=== PATIENT | female | born 1970 | race Caucasian/White ===

== ENCOUNTER 2018-09-18 14:40 | Inpatient (IN) | payer MEDICAID ==
[~2018-09-18] VITALS: Ht 162.6 cm; Wt 85.7 kg
[2018-09-18] MEDS ORDERED: SODIUM CHLORIDE 0.9% 1,000 ML IV ONE ×2 (14:45→19:45)
[2018-09-18 15:33] LABS: ANION GAP 8 mmol/L (8-16); CALCIUM, TOTAL 8.6 mg/dL (8.8-10.5); CARBON DIOXIDE 29 mmol/L (22-29); CHLORIDE 104 mmol/L (98-107); CREATININE 1.21 mg/dL (0.60-1.30); GLOMERULAR FILTR. RATE CALC 48 mL/min (>60); GLUCOSE,RANDOM 133 mg/dL (70-110); POTASSIUM 3.6 mmol/L (3.5-5.1); SODIUM SERUM 141 mmol/L (136-145); UREA NITROGEN, BLOOD 2 mg/dL (7-18)
[2018-09-18 15:38] LABS: ALANINE AMINOTRANSFERASE 32 U/L (12-78); ALBUMIN 2.9 g/dL (3.4-5.0); ALKALINE PHOSPHATASE 89 U/L (46-116); ASPARTATE AMINOTRANSFERASE 34 U/L (15-37); BILIRUBIN,TOTAL 0.2 mg/dL (0.1-1.0); TOTAL PROTEIN, SERUM 7.4 g/dL (6.4-8.2)
[2018-09-18 15:46] LABS: SALICYLATE < 2.8 mg/dL (2.8-20.0)
[2018-09-18 15:51] LABS: BASOPHILS % (AUTO) 0.5 % (0.0-2.0); EOSINOPHILS % (AUTO) 0.6 % (1.0-6.0); HEMATOCRIT 38.4 % (36-46); HEMOGLOBIN 12.7 g/dL (12.0-16.0); LYMPHOCYTES % (AUTO) 24.8 % (22.0-44.0); MEAN CORPUSCULAR HEMOGLOBIN 28.6 pg (26.0-34.0); MEAN CORPUSCULAR VOLUME 87 fL (80-100); MONOCYTES # (AUTO) 0.7 K/uL (0.1-1.0); MONOCYTES % (AUTO) 9.1 % (2.0-9.0); NEUTROPHILS # (AUTO) 5.1 K/uL (1.8-7.7); PLATELET COUNT (AUTO) 425 K/uL (150-450); RED BLOOD CELL COUNT(AUTO) 4.42 MIL/uL (4.00-5.20); RED CELL DISTRIBUTION WIDTH 15.1 % (11.5-14.5)
[2018-09-18 15:57] LABS: ACETAMINOPHEN < 2 mcg/mL (10-30)
[2018-09-18] MEDS ORDERED: MAGNESIUM SULFATE 2 GM, MVI, ADULT NO.1 WITH VIT K 10 ML, THIAMINE HCL 100 MG, FOLIC AC... IV ONE ×5 (16:30)
[2018-09-18 16:40] LABS: OSMOLALITY 332 mOS/kg (270-310)
[2018-09-18 16:49] LABS: AMPHET/METH SCREEN,URINE NEGATIVE (NEGATIVE); BARBITURATE SCREEN, URINE NEGATIVE (NEGATIVE); BENZODIAZEPINES SCREEN,URINE NEGATIVE (NEGATIVE); CANNABINOID SCREEN,URINE NEGATIVE (NEGATIVE); COCAINE SCREEN,URINE NEGATIVE (NEGATIVE); METHADONE SCREEN, URINE NEGATIVE (NEGATIVE); OPIATE SCREEN,URINE NEGATIVE (NEGATIVE)
[2018-09-18 16:50] LABS: PHENCYCLIDINE SCREEN,URINE NEGATIVE (NEGATIVE)
[2018-09-19] MEDS: HALOPERIDOL 5 MG TABLET PO PRN ×3 (00:28→17:34)
[2018-09-19] MEDS: LORazepam 2 MG TABLET PO PRN ×3 (00:28→17:35)
[2018-09-19] MEDS: ZOLPIDEM TARTRATE 10 MG TABLET PO PRN ×2 (01:09→21:56)
[2018-09-19 02:23] VITALS: BP 121/76
[2018-09-19] MEDS ORDERED: PETROLATUM,WHITE 71 GM JELLY TP PRN (07:30)
[2018-09-19] MEDS ORDERED: CloNIDine HCL 0.1 MG TABLET PO PRN (07:30)
[2018-09-19] MEDS ORDERED: IBUPROFEN 400 MG TABLET PO PRN (07:30)
[2018-09-19] MEDS ORDERED: LOPERAMIDE HCL 2 MG CAPSULE PO PRN (07:30)
[2018-09-19] MEDS ORDERED: MAG HYDROX/AL HYDROX/SIMETH ES 30 ML SUSPENSION UDCUP PO PRN (07:30)
[2018-09-19] MEDS ORDERED: ACETAMINOPHEN 325 MG TABLET PO PRN (07:30)
[2018-09-19] MEDS ORDERED: ALBUTEROL SULFATE HFA 90 MCG/PUFF 8 GM INHALER IH PRN (07:30)
[2018-09-19] MEDS ORDERED: MAGNESIUM HYDROXIDE SUSPENSION 30 ML UDCUP PO PRN (07:30)
[2018-09-19] MEDS ORDERED: ONDANSETRON HCL 4 MG TABLET PO PRN (07:30)
[2018-09-19] MEDS ORDERED: DOCUSATE SODIUM 100 MG CAPSULE PO PRN (07:30)
[2018-09-19 08:42] LABS: HEMOGLOBIN A1C 5.7 % (4.5-6.2)
[2018-09-19 09:01] LABS: CHOL/HDL RATIO 5.1 (3.9-5.7); FREE T4 (FREE THYROXINE) 0.95 ng/dL (0.76-1.46); THYROID STIMULATING HORMONE 1.56 uIU/mL (0.36-3.74)
[2018-09-19] MEDS: NICOTINE 14 MG/24 HOUR PATCH TD PRN (09:14)
[2018-09-19] MEDS: QUEtiapine FUMARATE 25 MG TABLET PO SCH (10:08)
[2018-09-19 10:15] LABS: APPEARANCE,URINE CLEAR (CLEAR); BILIRUBIN,URINE NEGATIVE (NEGATIVE); GLUCOSE, URINE (UA) NEGATIVE (NEGATIVE); KETONES,URINE NEGATIVE (NEGATIVE); LEUKOCYTE ESTERASE ,URINE NEGATIVE (NEGATIVE); NITRATE,URINE NEGATIVE (NEGATIVE); OCCULT BLOOD,URINE NEGATIVE (NEGATIVE); PROTEIN,URINE NEGATIVE (NEGATIVE); UROBILINOGEN,URINE 0.2 mg/dL (<=1.0)
[2018-09-19 10:20] LABS: AMPHET/METH SCREEN,URINE NEGATIVE (NEGATIVE); BARBITURATE SCREEN, URINE NEGATIVE (NEGATIVE); BENZODIAZEPINES SCREEN,URINE NEGATIVE (NEGATIVE); CANNABINOID SCREEN,URINE NEGATIVE (NEGATIVE); COCAINE SCREEN,URINE NEGATIVE (NEGATIVE); METHADONE SCREEN, URINE NEGATIVE (NEGATIVE); OPIATE SCREEN,URINE NEGATIVE (NEGATIVE); PHENCYCLIDINE SCREEN,URINE NEGATIVE (NEGATIVE)
[2018-09-19 16:08] VITALS: BP 104/58
[2018-09-19] MEDS: QUEtiapine FUMARATE 100 MG TABLET PO SCH (21:56)
[2018-09-20 06:03] VITALS: BP 112/69
[2018-09-20] MEDS: LORazepam 2 MG TABLET PO PRN ×3 (07:43→20:34)
[2018-09-20] MEDS: QUEtiapine FUMARATE 25 MG TABLET PO SCH (07:43)
[2018-09-20] MEDS: HALOPERIDOL 5 MG TABLET PO PRN ×2 (07:43→16:04)
[2018-09-20] MEDS: NICOTINE 14 MG/24 HOUR PATCH TD PRN (07:44)
[2018-09-20 07:50] LABS: BASOPHILS % (AUTO) 0.6 % (0.0-2.0); EOSINOPHILS % (AUTO) 1.6 % (1.0-6.0); HEMATOCRIT 35.7 % (36-46); HEMOGLOBIN 11.8 g/dL (12.0-16.0); LYMPHOCYTES # (AUTO) 1.7 K/uL (1.0-4.8); MEAN CORPUSCULAR HEMOGLOBIN 28.8 pg (26.0-34.0); MEAN CORPUSCULAR HGB CONC 33.1 G/dL (31.0-37.0); MEAN CORPUSCULAR VOLUME 87 fL (80-100); MONOCYTES # (AUTO) 0.4 K/uL (0.1-1.0); MONOCYTES % (AUTO) 7.3 % (2.0-9.0); NEUTROPHILS # (AUTO) 3.6 K/uL (1.8-7.7); NEUTROPHILS % (AUTO) 61.5 % (40.0-70.0); PLATELET COUNT (AUTO) 418 K/uL (150-450); RED BLOOD CELL COUNT(AUTO) 4.11 MIL/uL (4.00-5.20); RED CELL DISTRIBUTION WIDTH 14.8 % (11.5-14.5)
[2018-09-20 07:58] LABS: HEMOGLOBIN A1C 5.7 % (4.5-6.2)
[2018-09-20 08:01] VITALS: BP 108/60
[2018-09-20 08:12] LABS: ALBUMIN 2.9 g/dL (3.4-5.0); BILIRUBIN,TOTAL 0.2 mg/dL (0.1-1.0); CALCIUM, TOTAL 8.7 mg/dL (8.8-10.5); CHOL/HDL RATIO 4.4 (3.9-5.7); CREATININE 1.22 mg/dL (0.60-1.30); POTASSIUM 4.7 mmol/L (3.5-5.1); THYROID STIMULATING HORMONE 1.99 uIU/mL (0.36-3.74); TOTAL PROTEIN, SERUM 7.3 g/dL (6.4-8.2)
[2018-09-20 17:00] VITALS: BP 127/65
[2018-09-20] MEDS: ZOLPIDEM TARTRATE 10 MG TABLET PO PRN (20:34)
[2018-09-20] MEDS: QUEtiapine FUMARATE 100 MG TABLET PO SCH (20:35)
[2018-09-21 08:21] VITALS: BP 114/71
[2018-09-21] MEDS: QUEtiapine FUMARATE 25 MG TABLET PO SCH (08:59)
[2018-09-21] MEDS: LORazepam 2 MG TABLET PO PRN ×2 (08:59→17:26)
[2018-09-21] MEDS: HALOPERIDOL 5 MG TABLET PO PRN ×2 (08:59→15:56)
[2018-09-21] MEDS: NICOTINE 14 MG/24 HOUR PATCH TD PRN (09:00)
[2018-09-21] MEDS: FLUoxetine HCL 20 MG CAPSULE PO SCH (12:37)
[2018-09-21] MEDS: GuaiFENesin/D-METHORPHAN [SUGAR-FREE] 200-20MG/10 ML SYRUP UDCUP PO PRN (15:55)
[2018-09-21 17:18] VITALS: BP 115/73
[2018-09-21] MEDS ORDERED: BENZOCAINE/MENTHOL LOZENGE PO PRN (19:30)
[2018-09-21] MEDS: QUEtiapine FUMARATE 200 MG TABLET PO SCH (20:31)
[2018-09-21] MEDS: ZOLPIDEM TARTRATE 10 MG TABLET PO PRN (20:32)
[2018-09-22] MEDS: HALOPERIDOL 5 MG TABLET PO PRN ×4 (05:01→20:10)
[2018-09-22] MEDS: LORazepam 2 MG TABLET PO PRN ×4 (05:01→20:10)
[2018-09-22 05:20] VITALS: BP 121/70
[2018-09-22 08:15] VITALS: BP 108/73
[2018-09-22] MEDS: QUEtiapine FUMARATE 25 MG TABLET PO SCH (09:11)
[2018-09-22] MEDS: NICOTINE 14 MG/24 HOUR PATCH TD PRN (09:11)
[2018-09-22] MEDS: FLUoxetine HCL 20 MG CAPSULE PO SCH (09:11)
[2018-09-22] MEDS: GuaiFENesin/D-METHORPHAN [SUGAR-FREE] 200-20MG/10 ML SYRUP UDCUP PO PRN ×2 (09:17→20:09)
[2018-09-22 17:14] VITALS: BP 106/66
[2018-09-22] MEDS: QUEtiapine FUMARATE 200 MG TABLET PO SCH (20:10)
[2018-09-23] MEDS: LORazepam 2 MG TABLET PO PRN ×3 (05:40→18:05)
[2018-09-23 08:00] VITALS: BP 122/79
[2018-09-23] MEDS: FLUoxetine HCL 20 MG CAPSULE PO SCH (09:33)
[2018-09-23] MEDS: QUEtiapine FUMARATE 25 MG TABLET PO SCH (09:33)
[2018-09-23] MEDS: GuaiFENesin/D-METHORPHAN [SUGAR-FREE] 200-20MG/10 ML SYRUP UDCUP PO PRN ×2 (09:34→18:06)
[2018-09-23] MEDS: NICOTINE 14 MG/24 HOUR PATCH TD PRN (09:36)
[2018-09-23 20:05] VITALS: BP 110/72
[2018-09-23] MEDS: QUEtiapine FUMARATE 200 MG TABLET PO SCH (20:13)
[2018-09-23] MEDS: ZOLPIDEM TARTRATE 10 MG TABLET PO PRN (20:13)
[2018-09-24] MEDS: LORazepam 2 MG TABLET PO PRN (03:27)
[2018-09-24] MEDS: ZOLPIDEM TARTRATE 10 MG TABLET PO PRN (03:27)
[2018-09-24 04:11] VITALS: BP 119/79
[2018-09-24] MEDS: FLUoxetine HCL 20 MG CAPSULE PO SCH (08:02)
[2018-09-24] MEDS: QUEtiapine FUMARATE 25 MG TABLET PO SCH (08:02)
[2018-09-24] MEDS ORDERED: QUET25TA PO (08:26)
[2018-09-24] MEDS ORDERED: FLUO-191 PO (08:26)
[2018-09-24] MEDS ORDERED: QUET200T PO (08:27)
[2018-09-24 10:47] VITALS: BP 122/81
== END 2018-09-24 12:07 | disposition home or self-care (01) | DRG 750 ==
LOC: EMS 14:43 → 3EI 21:05
DX: F25.1 Schizoaffective disorder, depressive type (principal); Z78.1 Physical restraint status; R45.851 Suicidal ideations; E78.5 Hyperlipidemia, unspecified; F41.9 Anxiety disorder, unspecified; D64.9 Anemia, unspecified; F10.10 Alcohol abuse, uncomplicated; Y90.9 Presence of alcohol in blood, level not specified; T51.92XD Toxic effect of unspecified alcohol, intentional self-harm, subsequent encounter; R45.87 Impulsiveness; M79.7 Fibromyalgia; Z79.899 Other long term (current) drug therapy; Z23 Encounter for immunization; Z91.5 Personal history of self-harm; Y92.89 Other specified places as the place of occurrence of the external cause
CPT/HCPCS: 80307; 83036; 83930; 84439; 84443; 90686; 93005; 96365; G0480; G0481; J3411; J3475; J3490; J7030; Q0162

== ENCOUNTER 2018-09-25 04:24 | Emergency (ER) | payer MEDICAID ==
[~2018-09-25] VITALS: Ht 162.6 cm; Wt 84.5 kg
[~2018-09-25 04:24] MED LIST: FLUO-191 PO; QUET200T PO; QUET25TA PO
[2018-09-25 06:04] LABS: BASOPHILS % (AUTO) 0.4 % (0.0-2.0); EOSINOPHILS % (AUTO) 0.2 % (1.0-6.0); HEMATOCRIT 35.6 % (36-46); HEMOGLOBIN 11.9 g/dL (12.0-16.0); LYMPHOCYTES # (AUTO) 1.6 K/uL (1.0-4.8); LYMPHOCYTES % (AUTO) 20.1 % (22.0-44.0); MEAN CORPUSCULAR HEMOGLOBIN 28.6 pg (26.0-34.0); MEAN CORPUSCULAR HGB CONC 33.3 G/dL (31.0-37.0); MEAN CORPUSCULAR VOLUME 86 fL (80-100); MONOCYTES # (AUTO) 0.8 K/uL (0.1-1.0); MONOCYTES % (AUTO) 9.8 % (2.0-9.0); NEUTROPHILS # (AUTO) 5.6 K/uL (1.8-7.7); NEUTROPHILS % (AUTO) 69.5 % (40.0-70.0); PLATELET COUNT (AUTO) 483 K/uL (150-450); RED BLOOD CELL COUNT(AUTO) 4.14 MIL/uL (4.00-5.20); RED CELL DISTRIBUTION WIDTH 14.8 % (11.5-14.5)
[2018-09-25 06:12] LABS: ANION GAP 10 mmol/L (8-16); CALCIUM, TOTAL 9.3 mg/dL (8.8-10.5); CARBON DIOXIDE 28 mmol/L (22-29); CHLORIDE 102 mmol/L (98-107); CREATININE 0.74 mg/dL (0.60-1.30); GLOMERULAR FILTR. RATE CALC > 60 mL/min (>60); GLUCOSE,RANDOM 119 mg/dL (70-110); POTASSIUM 4.9 mmol/L (3.5-5.1); SODIUM SERUM 140 mmol/L (136-145); UREA NITROGEN, BLOOD 8 mg/dL (7-18)
[2018-09-25 06:19] LABS: ALANINE AMINOTRANSFERASE 31 U/L (12-78); ALBUMIN 3.4 g/dL (3.4-5.0); ALKALINE PHOSPHATASE 95 U/L (46-116); ASPARTATE AMINOTRANSFERASE 31 U/L (15-37); BILIRUBIN,TOTAL 0.3 mg/dL (0.1-1.0); TOTAL PROTEIN, SERUM 7.8 g/dL (6.4-8.2)
[2018-09-25 06:30] VITALS: BP 120/66
[2018-09-25 06:39] LABS: HCG,QUANTITATIVE 2 mIU/mL (0-6)
[2018-09-25] MEDS ORDERED: DiphenhydrAMINE HCL 25 MG CAPSULE PO ONE (06:45)
[2018-09-25] MEDS ORDERED: LORazepam 1 MG TABLET PO ONE (06:45)
[2018-09-25] MEDS ORDERED: HALOPERIDOL 5 MG TABLET PO ONE (06:45)
[2018-09-25] MEDS ORDERED: ONDANSETRON HCL 4 MG TABLET PO ONE (07:15)
[2018-09-25 07:17] LABS: AMPHET/METH SCREEN,URINE NEGATIVE (NEGATIVE); BARBITURATE SCREEN, URINE NEGATIVE (NEGATIVE); BENZODIAZEPINES SCREEN,URINE NEGATIVE (NEGATIVE); CANNABINOID SCREEN,URINE NEGATIVE (NEGATIVE); COCAINE SCREEN,URINE NEGATIVE (NEGATIVE); METHADONE SCREEN, URINE NEGATIVE (NEGATIVE); OPIATE SCREEN,URINE NEGATIVE (NEGATIVE)
[2018-09-25 07:18] LABS: PHENCYCLIDINE SCREEN,URINE NEGATIVE (NEGATIVE)
[2018-09-25 07:20] LABS: APPEARANCE,URINE CLEAR (CLEAR); BILIRUBIN,URINE NEGATIVE (NEGATIVE); GLUCOSE, URINE (UA) NEGATIVE (NEGATIVE); KETONES,URINE NEGATIVE (NEGATIVE); LEUKOCYTE ESTERASE ,URINE NEGATIVE (NEGATIVE); NITRATE,URINE NEGATIVE (NEGATIVE); OCCULT BLOOD,URINE NEGATIVE (NEGATIVE); PH,URINE 6.5 (5.0-8.0); PROTEIN,URINE NEGATIVE (NEGATIVE); UROBILINOGEN,URINE 0.2 mg/dL (<=1.0)
== END 2018-09-25 08:20 | disposition home or self-care (01) ==
LOC: EMS 04:26
DX: F25.9 Schizoaffective disorder, unspecified (principal); F17.200 Nicotine dependence, unspecified, uncomplicated
CPT/HCPCS: 36415; 80053; 80307; 81003; 84702; 85025; 99284; G0480; Q0162

== ENCOUNTER 2018-09-29 12:07 | Emergency (ER) | payer MEDICAID ==
[~2018-09-29] VITALS: Ht 162.6 cm; Wt 84.5 kg
[2018-09-29] MEDS ORDERED: KETOROLAC TROMETHAMINE 60 MG/2 ML VIAL IM ONE (15:00)
[2018-09-29 16:52] VITALS: BP 130/88
[2018-10-01] MEDS ORDERED: FLUO-191 PO (09:06)
[2018-10-01] MEDS ORDERED: QUET200T29 PO (09:06)
[2018-10-01] MEDS ORDERED: QUET25TA34 PO (09:06)
[2018-10-04] MEDS ORDERED: LEVO50TA11 PO (09:18)
[2018-10-04] MEDS ORDERED: OMEG-12 PO (09:19)
[2018-10-04] MEDS ORDERED: DIVA-76 PO (09:25)
== END 2018-09-29 16:55 | disposition home or self-care (01) ==
LOC: EMS 12:08
DX: S80.02XA Contusion of left knee, initial encounter (principal); F25.9 Schizoaffective disorder, unspecified; F17.210 Nicotine dependence, cigarettes, uncomplicated; W01.0XXA Fall on same level from slipping, tripping and stumbling without subsequent striking against object, initial encounter; Y93.89 Activity, other specified; Y92.89 Other specified places as the place of occurrence of the external cause; Y99.8 Other external cause status
CPT/HCPCS: 73562; 96372; 99283; 99406; J1885; 29530

== ENCOUNTER 2019-04-28 14:47 | Inpatient (IN) | payer MEDICAID ==
[~2019-04-28] VITALS: Ht 162.6 cm; Wt 90.7 kg
[~2019-04-28 14:47] MED LIST changes: +BACL10TA PO; +DIVA-76 PO; +LEVO50TA11 PO; +NAPR-1025 PO; +OMEG-12 PO; -QUET200T PO; +QUET200T29 PO; -QUET25TA PO; +QUET25TA34 PO
[2019-04-28] MEDS ORDERED: DiphenhydrAMINE HCL 25 MG CAPSULE PO ONE (15:45)
[2019-04-28] MEDS ORDERED: HALOPERIDOL 5 MG TABLET PO ONE (15:45)
[2019-04-28] MEDS ORDERED: LORazepam 2 MG TABLET PO ONE (15:45)
[2019-04-29] MEDS: ZOLPIDEM TARTRATE 10 MG TABLET PO PRN (01:20)
[2019-04-29 01:38] VITALS: BP 120/81
[2019-04-29 07:54] LABS: HEMOGLOBIN A1C 5.9 % (4.5-6.2)
[2019-04-29 08:06] LABS: BASOPHILS % (AUTO) 0.5 % (0.0-2.0); HEMATOCRIT 32.9 % (36-46); HEMOGLOBIN 10.4 g/dL (12.0-16.0); LYMPHOCYTES # (AUTO) 1.9 K/uL (1.0-4.8); LYMPHOCYTES % (AUTO) 32.6 % (22.0-44.0); MEAN CORPUSCULAR HEMOGLOBIN 25.2 pg (26.0-34.0); MEAN CORPUSCULAR HGB CONC 31.6 G/dL (31.0-37.0); MEAN CORPUSCULAR VOLUME 80 fL (80-100); MONOCYTES # (AUTO) 0.6 K/uL (0.1-1.0); NEUTROPHILS # (AUTO) 3.2 K/uL (1.8-7.7); NEUTROPHILS % (AUTO) 54.9 % (40.0-70.0); PLATELET COUNT (AUTO) 301 K/uL (150-450); RED BLOOD CELL COUNT(AUTO) 4.12 MIL/uL (4.00-5.20); RED CELL DISTRIBUTION WIDTH 15.9 % (11.5-14.5)
[2019-04-29 08:07] LABS: ALANINE AMINOTRANSFERASE 41 U/L (12-78); ALBUMIN 3.1 g/dL (3.4-5.0); ALKALINE PHOSPHATASE 103 U/L (46-116); ANION GAP 8 mmol/L (8-16); ASPARTATE AMINOTRANSFERASE 48 U/L (15-37); BILIRUBIN,TOTAL 0.3 mg/dL (0.1-1.0); CALCIUM, TOTAL 9.5 mg/dL (8.8-10.5); CARBON DIOXIDE 29 mmol/L (22-29); CHLORIDE 106 mmol/L (98-107); CHOL/HDL RATIO 3.7 (3.9-5.7); CHOLESTEROL 156 mg/dL (131-200); CREATININE 0.69 mg/dL (0.60-1.30); FREE T4 (FREE THYROXINE) 0.88 ng/dL (0.76-1.46); GLOMERULAR FILTR. RATE CALC > 60 mL/min (>60); GLUCOSE,RANDOM 83 mg/dL (70-110); HDL CHOLESTEROL 42 mg/dL (40-60); LDL CHOL (CALC.) 95 mg/dL (0-130); SODIUM SERUM 143 mmol/L (136-145); THYROID STIMULATING HORMONE 4.31 uIU/mL (0.36-3.74); TRIGLYCERIDES 94 mg/dL (15-150); UREA NITROGEN, BLOOD 18 mg/dL (7-18)
[2019-04-29 08:31] VITALS: BP 139/85
[2019-04-29] MEDS: LORazepam 2 MG TABLET PO PRN ×2 (09:27→17:34)
[2019-04-29 16:47] VITALS: BP 116/71
[2019-04-29] MEDS: QUEtiapine FUMARATE 200 MG TABLET PO SCH (20:50)
[2019-04-29] MEDS: DIVALPROEX SODIUM 500 MG DR TABLET PO SCH (20:50)
[2019-04-30 00:23] VITALS: BP 101/49
[2019-04-30] MEDS: LEVOTHYROXINE SODIUM 50 MCG TABLET PO SCH (07:11)
[2019-04-30] MEDS: FLUoxetine HCL 20 MG CAPSULE PO SCH (08:39)
[2019-04-30] MEDS: GABAPENTIN 300 MG CAPSULE PO SCH ×2 (08:40→16:29)
[2019-04-30] MEDS: DIVALPROEX SODIUM 500 MG DR TABLET PO SCH ×2 (08:40→20:32)
[2019-04-30 09:01] VITALS: BP 110/55
[2019-04-30] MEDS: LORazepam 2 MG TABLET PO PRN (10:35)
[2019-04-30 16:24] VITALS: BP 131/76
[2019-04-30] MEDS ORDERED: ONDANSETRON HCL 4 MG TABLET PO PRN (18:15)
[2019-04-30] MEDS: QUEtiapine FUMARATE 200 MG TABLET PO SCH (20:32)
[2019-05-01 05:24] VITALS: BP 102/63
[2019-05-01] MEDS: LEVOTHYROXINE SODIUM 50 MCG TABLET PO SCH (06:01)
[2019-05-01 08:19] VITALS: BP 108/63
[2019-05-01] MEDS: DIVALPROEX SODIUM 500 MG DR TABLET PO SCH ×2 (08:23→20:41)
[2019-05-01] MEDS: MULTIVITAMINS WITH IRON TABLET PO SCH (08:23)
[2019-05-01] MEDS: FLUoxetine HCL 20 MG CAPSULE PO SCH (08:23)
[2019-05-01] MEDS: GABAPENTIN 300 MG CAPSULE PO SCH ×2 (08:23→17:15)
[2019-05-01] MEDS: LORazepam 2 MG TABLET PO PRN (13:37)
[2019-05-01 16:34] VITALS: BP 106/74
[2019-05-01] MEDS: QUEtiapine FUMARATE 200 MG TABLET PO SCH (20:41)
[2019-05-02 00:30] VITALS: BP 106/65
[2019-05-02] MEDS: LEVOTHYROXINE SODIUM 50 MCG TABLET PO SCH (06:57)
[2019-05-02 08:24] VITALS: BP 110/60
[2019-05-02] MEDS: MULTIVITAMINS WITH IRON TABLET PO SCH (09:11)
[2019-05-02] MEDS: DIVALPROEX SODIUM 500 MG DR TABLET PO SCH ×2 (09:12→20:42)
[2019-05-02] MEDS: GABAPENTIN 300 MG CAPSULE PO SCH ×2 (09:12→16:41)
[2019-05-02] MEDS: FLUoxetine HCL 20 MG CAPSULE PO SCH (09:12)
[2019-05-02] MEDS: LORazepam 2 MG TABLET PO PRN (10:55)
[2019-05-02 16:21] VITALS: BP 114/78
[2019-05-02] MEDS: QUEtiapine FUMARATE 200 MG TABLET PO SCH (20:42)
[2019-05-03 00:20] VITALS: BP 109/72
[2019-05-03] MEDS: ZOLPIDEM TARTRATE 10 MG TABLET PO PRN (03:24)
[2019-05-03] MEDS: HALOPERIDOL 5 MG TABLET PO PRN (03:57)
[2019-05-03] MEDS: LEVOTHYROXINE SODIUM 50 MCG TABLET PO SCH (06:34)
[2019-05-03 08:50] VITALS: BP 139/85
[2019-05-03] MEDS: DIVALPROEX SODIUM 500 MG DR TABLET PO SCH ×2 (08:52→20:13)
[2019-05-03] MEDS: GABAPENTIN 300 MG CAPSULE PO SCH ×2 (08:52→16:08)
[2019-05-03] MEDS: MULTIVITAMINS WITH IRON TABLET PO SCH (08:52)
[2019-05-03] MEDS: FLUoxetine HCL 20 MG CAPSULE PO SCH (08:52)
[2019-05-03] MEDS: LORazepam 2 MG TABLET PO PRN (16:08)
[2019-05-03 16:24] VITALS: BP 118/72
[2019-05-03] MEDS: QUEtiapine FUMARATE 200 MG TABLET PO SCH (20:13)
[2019-05-04 06:24] VITALS: BP 105/68
[2019-05-04] MEDS: LEVOTHYROXINE SODIUM 50 MCG TABLET PO SCH (06:45)
[2019-05-04 08:31] VITALS: BP 104/60
[2019-05-04] MEDS: FLUoxetine HCL 20 MG CAPSULE PO SCH (08:42)
[2019-05-04] MEDS: MULTIVITAMINS WITH IRON TABLET PO SCH (08:42)
[2019-05-04] MEDS: GABAPENTIN 300 MG CAPSULE PO SCH ×2 (08:42→16:19)
[2019-05-04] MEDS: DIVALPROEX SODIUM 500 MG DR TABLET PO SCH ×2 (08:42→20:43)
[2019-05-04] MEDS: LORazepam 2 MG TABLET PO PRN (11:05)
[2019-05-04] MEDS: HALOPERIDOL 5 MG TABLET PO PRN (14:56)
[2019-05-04 16:25] VITALS: BP 114/76
[2019-05-04] MEDS: QUEtiapine FUMARATE 200 MG TABLET PO SCH (20:43)
[2019-05-05 05:38] VITALS: BP 130/69
[2019-05-05] MEDS: LEVOTHYROXINE SODIUM 50 MCG TABLET PO SCH (06:00)
[2019-05-05 08:13] VITALS: BP 133/66
[2019-05-05] MEDS: FLUoxetine HCL 20 MG CAPSULE PO SCH (08:20)
[2019-05-05] MEDS: MULTIVITAMINS WITH IRON TABLET PO SCH (08:20)
[2019-05-05] MEDS: DIVALPROEX SODIUM 500 MG DR TABLET PO SCH ×2 (08:20→20:15)
[2019-05-05] MEDS: GABAPENTIN 300 MG CAPSULE PO SCH ×2 (08:20→16:25)
[2019-05-05] MEDS: HALOPERIDOL 5 MG TABLET PO PRN ×2 (13:07→19:42)
[2019-05-05] MEDS: LORazepam 2 MG TABLET PO PRN ×2 (13:07→19:42)
[2019-05-05 16:28] VITALS: BP 138/63
[2019-05-05] MEDS: QUEtiapine FUMARATE 200 MG TABLET PO SCH (20:15)
[2019-05-06] MEDS: LEVOTHYROXINE SODIUM 50 MCG TABLET PO SCH (06:02)
[2019-05-06 06:27] VITALS: BP 132/64
[2019-05-06] MEDS: MULTIVITAMINS WITH IRON TABLET PO SCH (08:08)
[2019-05-06] MEDS: GABAPENTIN 300 MG CAPSULE PO SCH ×2 (08:08→16:43)
[2019-05-06] MEDS: DIVALPROEX SODIUM 500 MG DR TABLET PO SCH ×2 (08:08→20:35)
[2019-05-06] MEDS: FLUoxetine HCL 20 MG CAPSULE PO SCH (08:08)
[2019-05-06 08:13] VITALS: BP 128/65
[2019-05-06] MEDS: HALOPERIDOL 5 MG TABLET PO PRN ×2 (09:27→16:43)
[2019-05-06] MEDS: LORazepam 2 MG TABLET PO PRN ×2 (09:27→16:43)
[2019-05-06 16:11] VITALS: BP 111/66
[2019-05-06] MEDS: QUEtiapine FUMARATE 200 MG TABLET PO SCH (20:34)
[2019-05-07] MEDS: LEVOTHYROXINE SODIUM 50 MCG TABLET PO SCH (06:14)
[2019-05-07] MEDS: GABAPENTIN 300 MG CAPSULE PO SCH (08:21)
[2019-05-07] MEDS: FLUoxetine HCL 20 MG CAPSULE PO SCH (08:21)
[2019-05-07] MEDS: DIVALPROEX SODIUM 500 MG DR TABLET PO SCH (08:21)
[2019-05-07] MEDS: MULTIVITAMINS WITH IRON TABLET PO SCH (08:21)
[2019-05-07 08:23] VITALS: BP 103/64
[2019-05-07] MEDS: LORazepam 2 MG TABLET PO PRN (09:46)
[2019-05-07] MEDS: HALOPERIDOL 5 MG TABLET PO PRN (09:46)
[2019-05-07] MEDS ORDERED: DIVA-78 PO (12:39)
[2019-05-07] MEDS ORDERED: GABA-531 PO (12:39)
[2019-05-07] MEDS ORDERED: FLUO-191 PO (12:39)
[2019-05-07] MEDS ORDERED: QUET200T PO (12:39)
== END 2019-05-07 13:20 | disposition home or self-care (01) | DRG 750 ==
LOC: EMS 14:47 → B2S 22:30
PROVIDERS: ADMIT Psychiatry & Neurology Psychiatry; ATTEND Psychiatry & Neurology Psychiatry
DX: F25.1 Schizoaffective disorder, depressive type (principal); R45.851 Suicidal ideations; E03.9 Hypothyroidism, unspecified; F15.90 Other stimulant use, unspecified, uncomplicated; Z90.710 Acquired absence of both cervix and uterus
CPT/HCPCS: 83036; 84439; 84443

== ENCOUNTER 2019-05-13 16:29 | Inpatient (IN) | payer MEDICAID ==
[~2019-05-13] VITALS: Ht 165.1 cm; Wt 89.8 kg
[~2019-05-13 16:29] MED LIST changes: -BACL10TA PO; -DIVA-76 PO; +DIVA-78 PO; +GABA-531 PO; -NAPR-1025 PO; -OMEG-12 PO; +QUET200T PO; -QUET200T29 PO; -QUET25TA34 PO
[2019-05-13] MEDS ORDERED: LORazepam 1 MG TABLET PO ONE (19:00)
[2019-05-13] MEDS ORDERED: ONDANSETRON HCL 4 MG TABLET PO ONE (19:15)
[2019-05-13 19:28] LABS: AMPHET/METH SCREEN,URINE POSITIVE (NEGATIVE); BARBITURATE SCREEN, URINE NEGATIVE (NEGATIVE); BENZODIAZEPINES SCREEN,URINE NEGATIVE (NEGATIVE); CANNABINOID SCREEN,URINE NEGATIVE (NEGATIVE); COCAINE SCREEN,URINE NEGATIVE (NEGATIVE); METHADONE SCREEN, URINE NEGATIVE (NEGATIVE); OPIATE SCREEN,URINE POSITIVE (NEGATIVE)
[2019-05-13 19:29] LABS: PHENCYCLIDINE SCREEN,URINE NEGATIVE (NEGATIVE)
[2019-05-13] MEDS ORDERED: HALOPERIDOL 5 MG TABLET PO ONE (19:30)
[2019-05-13] MEDS ORDERED: DiphenhydrAMINE HCL 25 MG CAPSULE PO ONE (19:30)
[2019-05-13 19:33] LABS: BASOPHILS % (AUTO) 0.3 % (0.0-2.0); EOSINOPHILS % (AUTO) 0.5 % (1.0-6.0); HEMATOCRIT 36.7 % (36-46); HEMOGLOBIN 11.3 g/dL (12.0-16.0); LYMPHOCYTES # (AUTO) 1.9 K/uL (1.0-4.8); LYMPHOCYTES % (AUTO) 25.1 % (22.0-44.0); MEAN CORPUSCULAR HEMOGLOBIN 24.4 pg (26.0-34.0); MEAN CORPUSCULAR HGB CONC 30.9 G/dL (31.0-37.0); MEAN CORPUSCULAR VOLUME 79 fL (80-100); MONOCYTES # (AUTO) 0.9 K/uL (0.1-1.0); MONOCYTES % (AUTO) 11.7 % (2.0-9.0); NEUTROPHILS # (AUTO) 4.6 K/uL (1.8-7.7); NEUTROPHILS % (AUTO) 62.4 % (40.0-70.0); PLATELET COUNT (AUTO) 376 K/uL (150-450); RED BLOOD CELL COUNT(AUTO) 4.64 MIL/uL (4.00-5.20); RED CELL DISTRIBUTION WIDTH 16.5 % (11.5-14.5)
[2019-05-13 19:44] LABS: ANION GAP 7 mmol/L (8-16); CALCIUM, TOTAL 9.3 mg/dL (8.8-10.5); CARBON DIOXIDE 30 mmol/L (22-29); CHLORIDE 103 mmol/L (98-107); CREATININE 0.84 mg/dL (0.60-1.30); GLOMERULAR FILTR. RATE CALC > 60 mL/min (>60); GLUCOSE,RANDOM 110 mg/dL (70-110); POTASSIUM 4.2 mmol/L (3.5-5.1); SODIUM SERUM 140 mmol/L (136-145); UREA NITROGEN, BLOOD 7 mg/dL (7-18)
[2019-05-13 19:49] LABS: ALANINE AMINOTRANSFERASE 75 U/L (12-78); ALBUMIN 3.8 g/dL (3.4-5.0); ALKALINE PHOSPHATASE 161 U/L (46-116); ASPARTATE AMINOTRANSFERASE 83 U/L (15-37); BILIRUBIN,TOTAL 0.3 mg/dL (0.1-1.0); TOTAL PROTEIN, SERUM 7.9 g/dL (6.4-8.2)
[2019-05-13 19:50] LABS: ACETAMINOPHEN < 2 mcg/mL (10-30)
[2019-05-13 19:55] LABS: SALICYLATE 2.9 mg/dL (2.8-20.0)
[2019-05-14 00:41] VITALS: BP 118/78
[2019-05-14] MEDS: ZOLPIDEM TARTRATE 10 MG TABLET PO PRN (00:48)
[2019-05-14] MEDS: LORazepam 2 MG TABLET PO PRN ×2 (00:48→11:36)
[2019-05-14] MEDS: GABAPENTIN 300 MG CAPSULE PO SCH ×2 (07:54→16:03)
[2019-05-14] MEDS: LEVOTHYROXINE SODIUM 50 MCG TABLET PO SCH (07:54)
[2019-05-14 11:37] VITALS: BP 114/84
[2019-05-14 16:13] VITALS: BP 116/63
[2019-05-14] MEDS: DIVALPROEX SODIUM 500 MG DR TABLET PO SCH (21:21)
[2019-05-14] MEDS: QUEtiapine FUMARATE 200 MG TABLET PO SCH (21:21)
[2019-05-15] MEDS: LEVOTHYROXINE SODIUM 50 MCG TABLET PO SCH (05:51)
[2019-05-15 06:28] VITALS: BP 114/70
[2019-05-15] MEDS: DIVALPROEX SODIUM 500 MG DR TABLET PO SCH ×2 (08:13→20:12)
[2019-05-15] MEDS: GABAPENTIN 300 MG CAPSULE PO SCH ×2 (08:13→16:02)
[2019-05-15] MEDS: FLUoxetine HCL 20 MG CAPSULE PO SCH (08:13)
[2019-05-15 08:24] VITALS: BP 109/63
[2019-05-15 09:18] LABS: CHOL/HDL RATIO 4.2 (3.9-5.7); FREE T4 (FREE THYROXINE) 0.88 ng/dL (0.76-1.46); THYROID STIMULATING HORMONE 0.96 uIU/mL (0.36-3.74)
[2019-05-15] MEDS: LORazepam 2 MG TABLET PO PRN (09:21)
[2019-05-15] MEDS: HALOPERIDOL 5 MG TABLET PO PRN (13:47)
[2019-05-15 16:08] VITALS: BP 112/68
[2019-05-15] MEDS: QUEtiapine FUMARATE 200 MG TABLET PO SCH (20:12)
[2019-05-16] MEDS: LEVOTHYROXINE SODIUM 50 MCG TABLET PO SCH (05:50)
[2019-05-16 06:15] VITALS: BP 113/69
[2019-05-16 08:06] VITALS: BP 115/69
[2019-05-16] MEDS: DIVALPROEX SODIUM 500 MG DR TABLET PO SCH ×2 (08:09→20:16)
[2019-05-16] MEDS: GABAPENTIN 300 MG CAPSULE PO SCH ×2 (08:09→16:01)
[2019-05-16] MEDS: LORazepam 2 MG TABLET PO PRN ×2 (08:10→15:41)
[2019-05-16] MEDS: FLUoxetine HCL 20 MG CAPSULE PO SCH (08:10)
[2019-05-16] MEDS: HALOPERIDOL 5 MG TABLET PO PRN (15:53)
[2019-05-16 16:00] VITALS: BP 127/89
[2019-05-16] MEDS: QUEtiapine FUMARATE 200 MG TABLET PO SCH (20:16)
[2019-05-16] MEDS: ZOLPIDEM TARTRATE 10 MG TABLET PO PRN (20:19)
[2019-05-16] MEDS: NICOTINE 21 MG/24 HOUR PATCH TD PRN (20:20)
[2019-05-17 06:41] VITALS: BP 132/73
[2019-05-17] MEDS: LEVOTHYROXINE SODIUM 50 MCG TABLET PO SCH (06:47)
[2019-05-17] MEDS: LORazepam 2 MG TABLET PO PRN ×3 (07:22→17:25)
[2019-05-17] MEDS: GABAPENTIN 300 MG CAPSULE PO SCH ×2 (08:04→16:59)
[2019-05-17] MEDS: FLUoxetine HCL 20 MG CAPSULE PO SCH (08:04)
[2019-05-17] MEDS: DIVALPROEX SODIUM 500 MG DR TABLET PO SCH ×2 (08:04→20:03)
[2019-05-17 08:09] VITALS: BP 106/68
[2019-05-17] MEDS: HALOPERIDOL 5 MG TABLET PO PRN ×2 (09:25→17:25)
[2019-05-17 16:27] VITALS: BP 124/70
[2019-05-17] MEDS: QUEtiapine FUMARATE 200 MG TABLET PO SCH (20:03)
[2019-05-18 00:35] VITALS: BP 99/71
[2019-05-18] MEDS: LEVOTHYROXINE SODIUM 50 MCG TABLET PO SCH (06:44)
[2019-05-18] MEDS: GABAPENTIN 300 MG CAPSULE PO SCH ×2 (07:51→16:23)
[2019-05-18] MEDS: FLUoxetine HCL 20 MG CAPSULE PO SCH (07:51)
[2019-05-18] MEDS: DIVALPROEX SODIUM 500 MG DR TABLET PO SCH ×2 (07:51→20:10)
[2019-05-18 08:01] VITALS: BP 102/64
[2019-05-18] MEDS: LORazepam 2 MG TABLET PO PRN ×2 (12:15→18:05)
[2019-05-18 16:09] VITALS: BP_SYST 102; BP_SYST 108; BP_DIAS 64; BP_DIAS 66
[2019-05-18] MEDS: HALOPERIDOL 5 MG TABLET PO PRN (16:23)
[2019-05-18] MEDS: QUEtiapine FUMARATE 200 MG TABLET PO SCH (20:10)
[2019-05-19 06:13] VITALS: BP 112/72
[2019-05-19] MEDS: LEVOTHYROXINE SODIUM 50 MCG TABLET PO SCH (06:50)
[2019-05-19] MEDS: GABAPENTIN 300 MG CAPSULE PO SCH ×2 (08:09→16:44)
[2019-05-19] MEDS: DIVALPROEX SODIUM 500 MG DR TABLET PO SCH ×2 (08:09→20:23)
[2019-05-19] MEDS: FLUoxetine HCL 20 MG CAPSULE PO SCH (08:12)
[2019-05-19 08:24] VITALS: BP 107/65
[2019-05-19] MEDS: LORazepam 2 MG TABLET PO PRN ×2 (12:57→19:14)
[2019-05-19] MEDS: HALOPERIDOL 5 MG TABLET PO PRN (12:57)
[2019-05-19 16:12] VITALS: BP 117/68
[2019-05-19] MEDS: QUEtiapine FUMARATE 200 MG TABLET PO SCH (20:23)
[2019-05-20 02:21] VITALS: BP 110/65
[2019-05-20] MEDS: LEVOTHYROXINE SODIUM 50 MCG TABLET PO SCH (06:47)
[2019-05-20 08:11] VITALS: BP 100/62
[2019-05-20] MEDS: DIVALPROEX SODIUM 500 MG DR TABLET PO SCH ×2 (08:17→20:05)
[2019-05-20] MEDS: FLUoxetine HCL 20 MG CAPSULE PO SCH (08:17)
[2019-05-20] MEDS: GABAPENTIN 300 MG CAPSULE PO SCH ×2 (08:17→16:08)
[2019-05-20] MEDS: HALOPERIDOL 5 MG TABLET PO PRN ×2 (08:49→17:37)
[2019-05-20] MEDS: LORazepam 2 MG TABLET PO PRN ×2 (08:49→17:37)
[2019-05-20 16:07] VITALS: BP 104/78
[2019-05-20 17:37] VITALS: BP 124/70
[2019-05-20] MEDS: NICOTINE 21 MG/24 HOUR PATCH TD PRN (17:38)
[2019-05-20] MEDS: QUEtiapine FUMARATE 200 MG TABLET PO SCH (20:05)
[2019-05-21 00:30] VITALS: BP 110/76
[2019-05-21] MEDS: LEVOTHYROXINE SODIUM 50 MCG TABLET PO SCH (05:27)
[2019-05-21 08:13] VITALS: BP 109/62
[2019-05-21] MEDS: GABAPENTIN 300 MG CAPSULE PO SCH ×2 (08:53→16:09)
[2019-05-21] MEDS: DIVALPROEX SODIUM 500 MG DR TABLET PO SCH ×2 (08:53→20:02)
[2019-05-21] MEDS: HALOPERIDOL 5 MG TABLET PO PRN ×2 (08:53→13:10)
[2019-05-21] MEDS: FLUoxetine HCL 20 MG CAPSULE PO SCH (08:53)
[2019-05-21] MEDS: LORazepam 2 MG TABLET PO PRN ×3 (08:53→18:48)
[2019-05-21 16:11] VITALS: BP 102/64
[2019-05-21] MEDS: QUEtiapine FUMARATE 200 MG TABLET PO SCH (20:02)
[2019-05-22 00:42] VITALS: BP 96/64
[2019-05-22] MEDS ORDERED: LEVO50TA11 PO (03:24)
[2019-05-22] MEDS ORDERED: GABA300C PO (03:27)
[2019-05-22] MEDS: LEVOTHYROXINE SODIUM 50 MCG TABLET PO SCH (06:08)
== END 2019-05-22 07:37 | disposition home or self-care (01) | DRG 750 ==
LOC: EDSTATUS 16:29 → EMS 18:02 → B2S 21:25
PROVIDERS: ADMIT Psychiatry & Neurology Psychiatry; ATTEND Psychiatry & Neurology Psychiatry
DX: F25.9 Schizoaffective disorder, unspecified (principal); R45.851 Suicidal ideations; E03.9 Hypothyroidism, unspecified; E78.00 Pure hypercholesterolemia, unspecified; Z90.710 Acquired absence of both cervix and uterus; F32.9 Major depressive disorder, single episode, unspecified; T50.902A Poisoning by unspecified drugs, medicaments and biological substances, intentional self-harm, initial encounter; Y92.89 Other specified places as the place of occurrence of the external cause; D64.9 Anemia, unspecified
CPT/HCPCS: 84439; 84443; 87081; G0480; G0481; Q0162

== ENCOUNTER 2020-12-16 13:32 | Inpatient (IN) | payer MEDICAID ==
[~2020-12-16] VITALS: Ht 162.6 cm; Wt 85.7 kg
[~2020-12-16 13:32] MED LIST changes: +DIVA-112 PO; -DIVA-78 PO; +GABA-1181 PO; -GABA-531 PO
[2020-12-16 16:00] LABS: COVID AG,FIA SOURCE NASOPHARYNGEAL
[2020-12-16] MEDS ORDERED: INFLUENZA VIRUS VACCINE QVS 2020-21 (6MO+)/PF 60 MCG/0.5 ML SYRINGE IM ONE (17:00)
[2020-12-16 17:41] VITALS: BP 128/71
[2020-12-16] MEDS: HALOPERIDOL 5 MG TABLET PO PRN (18:17)
[2020-12-16] MEDS: LORazepam 2 MG TABLET PO PRN (18:17)
[2020-12-16] MEDS ORDERED: BACITRACIN 28 GM OINTMENT TP PRN (19:30)
[2020-12-16] MEDS ORDERED: CloNIDine HCL 0.1 MG TABLET PO PRN (19:30)
[2020-12-16] MEDS ORDERED: BENZOCAINE/MENTHOL LOZENGE PO PRN (19:30)
[2020-12-16] MEDS ORDERED: ACETAMINOPHEN 325 MG TABLET PO PRN (19:30)
[2020-12-16] MEDS ORDERED: MAG HYDROX/AL HYDROX/SIMETH ES 30 ML SUSPENSION UDCUP PO PRN (19:30)
[2020-12-16] MEDS ORDERED: OMEPRAZOLE 20 MG CAPSULE PO PRN (19:30)
[2020-12-16] MEDS ORDERED: PETROLATUM,WHITE 28 GM JELLY TP PRN (19:30)
[2020-12-16] MEDS ORDERED: DOCUSATE SODIUM 100 MG CAPSULE PO PRN (19:30)
[2020-12-16] MEDS ORDERED: ALBUTEROL SULFATE HFA 90 MCG/PUFF 8 GM INHALER IH PRN (19:30)
[2020-12-16] MEDS ORDERED: ONDANSETRON HCL 4 MG TABLET PO PRN (19:30)
[2020-12-16] MEDS ORDERED: LOPERAMIDE HCL 2 MG CAPSULE PO PRN (19:30)
[2020-12-16] MEDS ORDERED: MAGNESIUM HYDROXIDE SUSPENSION 30 ML UDCUP PO PRN (19:30)
[2020-12-16] MEDS: IBUPROFEN 600 MG TABLET PO PRN (22:15)
[2020-12-16] MEDS: ZOLPIDEM TARTRATE 10 MG TABLET PO PRN (22:16)
[2020-12-17 00:13] VITALS: BP 120/69
[2020-12-17] MEDS: IBUPROFEN 600 MG TABLET PO PRN ×2 (05:25→16:14)
[2020-12-17] MEDS: LEVOTHYROXINE SODIUM 50 MCG TABLET PO SCH (06:49)
[2020-12-17 07:42] LABS: BASOPHILS % (AUTO) 0.3 % (0.0-2.0); EOSINOPHILS % (AUTO) 2.2 % (1.0-6.0); HEMATOCRIT 33.4 % (36-46); HEMOGLOBIN 10.9 g/dL (12.0-16.0); LYMPHOCYTES # (AUTO) 1.7 K/uL (1.0-4.8); LYMPHOCYTES % (AUTO) 21.9 % (22.0-44.0); MEAN CORPUSCULAR HEMOGLOBIN 27.5 pg (26.0-34.0); MEAN CORPUSCULAR HGB CONC 32.5 G/dL (31.0-37.0); MEAN CORPUSCULAR VOLUME 85 fL (80-100); MONOCYTES # (AUTO) 0.5 K/uL (0.1-1.0); MONOCYTES % (AUTO) 6.8 % (2.0-9.0); NEUTROPHILS # (AUTO) 5.3 K/uL (1.8-7.7); NEUTROPHILS % (AUTO) 68.8 % (40.0-70.0); PLATELET COUNT (AUTO) 340 K/uL (150-450); RED BLOOD CELL COUNT(AUTO) 3.95 MIL/uL (4.00-5.20); RED CELL DISTRIBUTION WIDTH 17.4 % (11.5-14.5)
[2020-12-17 08:08] VITALS: BP 130/80
[2020-12-17 08:15] LABS: ALANINE AMINOTRANSFERASE 65 U/L (12-78); ALBUMIN 3.3 g/dL (3.4-5.0); ALKALINE PHOSPHATASE 91 U/L (46-116); ANION GAP 8 mmol/L (8-16); ASPARTATE AMINOTRANSFERASE 63 U/L (15-37); BILIRUBIN,TOTAL 0.3 mg/dL (0.1-1.0); CALCIUM, TOTAL 9.2 mg/dL (8.8-10.5); CARBON DIOXIDE 27 mmol/L (22-29); CHLORIDE 102 mmol/L (98-107); CHOL/HDL RATIO 5.1 (3.9-5.7); CHOLESTEROL 224 mg/dL (131-200); CREATININE 0.56 mg/dL (0.60-1.30); FREE T4 (FREE THYROXINE) 0.69 ng/dL (0.76-1.46); GLOMERULAR FILTR. RATE CALC > 60 mL/min (>60); GLUCOSE,RANDOM 102 mg/dL (70-110); HCG,QUANTITATIVE 2 mIU/mL (0-6); HDL CHOLESTEROL 44 mg/dL (40-60); LDL CHOL (CALC.) 126 mg/dL (0-130); POTASSIUM 4.7 mmol/L (3.5-5.1); SODIUM SERUM 137 mmol/L (136-145); THYROID STIMULATING HORMONE 4.59 uIU/mL (0.36-3.74); TOTAL PROTEIN, SERUM 7.5 g/dL (6.4-8.2); TRIGLYCERIDES 269 mg/dL (15-150); UREA NITROGEN, BLOOD 9 mg/dL (7-18)
[2020-12-17] MEDS: GABAPENTIN 100 MG CAPSULE PO SCH ×2 (08:19→16:15)
[2020-12-17] MEDS: FLUoxetine HCL 20 MG CAPSULE PO SCH (08:20)
[2020-12-17] MEDS: LORazepam 2 MG TABLET PO PRN ×3 (08:20→17:06)
[2020-12-17] MEDS: NICOTINE 21 MG/24 HOUR PATCH TD SCH ×2 (09:35→16:01)
[2020-12-17] MEDS: HALOPERIDOL 5 MG TABLET PO PRN ×2 (13:03→17:06)
[2020-12-17 16:12] VITALS: BP 138/81
[2020-12-17] MEDS: ZOLPIDEM TARTRATE 10 MG TABLET PO PRN (20:17)
[2020-12-17] MEDS: QUEtiapine FUMARATE 200 MG TABLET PO SCH (20:17)
[2020-12-18 05:52] VITALS: BP 118/75
[2020-12-18] MEDS: IBUPROFEN 600 MG TABLET PO PRN ×2 (06:01→10:51)
[2020-12-18] MEDS: LORazepam 2 MG TABLET PO PRN ×3 (06:01→17:00)
[2020-12-18] MEDS: HALOPERIDOL 5 MG TABLET PO PRN ×3 (06:25→17:00)
[2020-12-18] MEDS: LEVOTHYROXINE SODIUM 50 MCG TABLET PO SCH (06:50)
[2020-12-18] MEDS: NICOTINE 21 MG/24 HOUR PATCH TD SCH ×2 (08:10→08:11)
[2020-12-18] MEDS: GABAPENTIN 100 MG CAPSULE PO SCH ×2 (08:12→16:14)
[2020-12-18] MEDS: OMEGA-3/DHA/EPA/FISH OIL 1,000 MG CAPSULE PO SCH (08:13)
[2020-12-18] MEDS: FLUoxetine HCL 20 MG CAPSULE PO SCH (08:13)
[2020-12-18 12:45] VITALS: BP 122/74
[2020-12-18 16:08] VITALS: BP 127/69
[2020-12-18] MEDS: QUEtiapine FUMARATE 200 MG TABLET PO SCH (20:26)
[2020-12-19 00:08] VITALS: BP 120/73
[2020-12-19] MEDS: IBUPROFEN 600 MG TABLET PO PRN ×2 (03:52→12:15)
[2020-12-19] MEDS: LEVOTHYROXINE SODIUM 50 MCG TABLET PO SCH (06:17)
[2020-12-19] MEDS: MULTIVITAMINS WITH IRON TABLET PO SCH (06:17)
[2020-12-19] MEDS: FLUoxetine HCL 20 MG CAPSULE PO SCH (08:05)
[2020-12-19] MEDS: OMEGA-3/DHA/EPA/FISH OIL 1,000 MG CAPSULE PO SCH (08:05)
[2020-12-19] MEDS: GABAPENTIN 100 MG CAPSULE PO SCH ×2 (08:05→16:32)
[2020-12-19] MEDS: NICOTINE 21 MG/24 HOUR PATCH TD SCH (08:06)
[2020-12-19] MEDS: LORazepam 2 MG TABLET PO PRN ×4 (08:06→20:27)
[2020-12-19 08:21] VITALS: BP 127/67
[2020-12-19] MEDS: HALOPERIDOL 5 MG TABLET PO PRN ×3 (08:34→16:59)
[2020-12-19 16:07] VITALS: BP 136/85
[2020-12-19] MEDS: QUEtiapine FUMARATE 200 MG TABLET PO SCH (20:03)
[2020-12-19] MEDS: ZOLPIDEM TARTRATE 10 MG TABLET PO PRN (20:05)
[2020-12-20 00:09] VITALS: BP 122/81
[2020-12-20] MEDS: MULTIVITAMINS WITH IRON TABLET PO SCH (06:52)
[2020-12-20] MEDS: LEVOTHYROXINE SODIUM 50 MCG TABLET PO SCH (06:52)
[2020-12-20] MEDS: NICOTINE 21 MG/24 HOUR PATCH TD SCH (08:15)
[2020-12-20] MEDS: FLUoxetine HCL 20 MG CAPSULE PO SCH (08:15)
[2020-12-20] MEDS: GABAPENTIN 100 MG CAPSULE PO SCH ×2 (08:15→16:09)
[2020-12-20] MEDS: HALOPERIDOL 5 MG TABLET PO PRN ×3 (08:16→16:55)
[2020-12-20] MEDS: LORazepam 2 MG TABLET PO PRN ×4 (08:16→21:50)
[2020-12-20] MEDS: OMEGA-3/DHA/EPA/FISH OIL 1,000 MG CAPSULE PO SCH (08:20)
[2020-12-20 08:29] VITALS: BP 128/82
[2020-12-20] MEDS: IBUPROFEN 600 MG TABLET PO PRN (13:02)
[2020-12-20 17:41] VITALS: BP 125/83
[2020-12-20] MEDS: QUEtiapine FUMARATE 200 MG TABLET PO SCH (20:04)
[2020-12-21 00:23] VITALS: BP 121/73
[2020-12-21] MEDS: LEVOTHYROXINE SODIUM 50 MCG TABLET PO SCH (06:12)
[2020-12-21] MEDS: MULTIVITAMINS WITH IRON TABLET PO SCH (06:57)
[2020-12-21 08:04] VITALS: BP 121/79
[2020-12-21] MEDS: OMEGA-3/DHA/EPA/FISH OIL 1,000 MG CAPSULE PO SCH (08:26)
[2020-12-21] MEDS: NICOTINE 21 MG/24 HOUR PATCH TD SCH (08:27)
[2020-12-21] MEDS: FLUoxetine HCL 20 MG CAPSULE PO SCH (08:27)
[2020-12-21] MEDS: GABAPENTIN 100 MG CAPSULE PO SCH ×2 (08:53→16:03)
[2020-12-21] MEDS: LORazepam 2 MG TABLET PO PRN ×4 (09:01→18:29)
[2020-12-21] MEDS: HALOPERIDOL 5 MG TABLET PO PRN ×3 (09:01→18:29)
[2020-12-21 10:07] LABS: COVID AG,FIA SOURCE NASOPHARYNGEAL
[2020-12-21 14:23] VITALS: BP 129/78
[2020-12-21] MEDS: IBUPROFEN 600 MG TABLET PO PRN (14:30)
[2020-12-21 16:23] VITALS: BP 111/78
[2020-12-21] MEDS: QUEtiapine FUMARATE 200 MG TABLET PO SCH (20:32)
[2020-12-22 01:58] VITALS: BP 108/64
[2020-12-22] MEDS: LORazepam 2 MG TABLET PO PRN ×2 (02:30→09:16)
[2020-12-22] MEDS: ZOLPIDEM TARTRATE 10 MG TABLET PO PRN (02:30)
[2020-12-22] MEDS: LEVOTHYROXINE SODIUM 50 MCG TABLET PO SCH (06:28)
[2020-12-22] MEDS: MULTIVITAMINS WITH IRON TABLET PO SCH (06:58)
[2020-12-22 08:05] VITALS: BP 103/61
[2020-12-22] MEDS: FLUoxetine HCL 20 MG CAPSULE PO SCH (09:15)
[2020-12-22] MEDS: NICOTINE 21 MG/24 HOUR PATCH TD SCH (09:15)
[2020-12-22] MEDS: GABAPENTIN 100 MG CAPSULE PO SCH ×2 (09:15→16:17)
[2020-12-22] MEDS: OMEGA-3/DHA/EPA/FISH OIL 1,000 MG CAPSULE PO SCH (09:16)
[2020-12-22] MEDS: HALOPERIDOL 5 MG TABLET PO PRN (09:16)
[2020-12-22] MEDS: IBUPROFEN 600 MG TABLET PO PRN (09:16)
[2020-12-22] MEDS: BusPIRone HCL 10 MG TABLET PO SCH ×2 (12:33→16:18)
[2020-12-22 16:16] VITALS: BP 116/77
[2020-12-22] MEDS ORDERED: QUEtiapine FUMARATE 300 MG TABLET PO SCH (21:00)
[2020-12-23 00:23] VITALS: BP 105/62
[2020-12-23 03:16] VITALS: BP 121/88
[2020-12-23] MEDS: LORazepam 2 MG TABLET PO PRN (03:18)
[2020-12-23] MEDS ORDERED: BUSP10TA23 PO (04:27)
[2020-12-23] MEDS: LEVOTHYROXINE SODIUM 50 MCG TABLET PO SCH (06:22)
[2020-12-23 06:34] VITALS: BP 114/82
[2020-12-23] MEDS: MULTIVITAMINS WITH IRON TABLET PO SCH (06:59)
== END 2020-12-23 07:30 | disposition home or self-care (01) | DRG 750 ==
LOC: B3A 16:41 → B2S 12-20 22:07
PROVIDERS: ADMIT Psychiatry & Neurology Psychiatry; ATTEND Psychiatry & Neurology Psychiatry
DX: F25.9 Schizoaffective disorder, unspecified (principal); R45.851 Suicidal ideations; E03.9 Hypothyroidism, unspecified; E78.5 Hyperlipidemia, unspecified; G43.909 Migraine, unspecified, not intractable, without status migrainosus; K21.9 Gastro-esophageal reflux disease without esophagitis; E55.9 Vitamin D deficiency, unspecified; K59.00 Constipation, unspecified; Z20.822 Contact with and (suspected) exposure to COVID-19; Z23 Encounter for immunization
CPT/HCPCS: 83036; 83540; 83550; 84439; 84443; 87081; 87426; 90686

== ENCOUNTER 2024-06-25 00:22 | Inpatient (IN) | payer MEDICAID, OTHER ==
[~2024-06-25] VITALS: Ht 162.6 cm; Wt 81.3 kg
[~2024-06-25 00:22] MED LIST changes: +BUSP10TA23 PO; -DIVA-112 PO; +FLUO-177 PO; -FLUO-191 PO
[2024-06-25 01:22] VITALS: O2SAT 98
[2024-06-25 01:34] LABS: PH,URINE DRUG SCREEN 5.5 (5.0-8.0)
[2024-06-25 01:42] LABS: ALCOHOL, URINE DRUG SCREEN NEGATIVE (NEGATIVE); AMPHET/METH SCREEN,URINE NEGATIVE (NEGATIVE); BARBITURATE SCREEN, URINE NEGATIVE (NEGATIVE); BENZODIAZEPINES SCREEN,URINE NEGATIVE (NEGATIVE); CANNABINOID SCREEN,URINE NEGATIVE (NEGATIVE); COCAINE SCREEN,URINE NEGATIVE (NEGATIVE); METHADONE SCREEN, URINE NEGATIVE (NEGATIVE); OPIATE SCREEN,URINE NEGATIVE (NEGATIVE); PHENCYCLIDINE SCREEN,URINE NEGATIVE (NEGATIVE)
[2024-06-25 02:09] LABS: BASOPHILS % (AUTO) 0.4 % (0.0-2.0); EOSINOPHILS % (AUTO) 2.3 % (1.0-6.0); HEMATOCRIT 38.1 % (36-46); HEMOGLOBIN 12.3 g/dL (12.0-16.0); LYMPHOCYTES # (AUTO) 1.7 K/uL (1.0-4.8); LYMPHOCYTES % (AUTO) 33.5 % (22.0-44.0); MEAN CORPUSCULAR HEMOGLOBIN 26.8 pg (26.0-34.0); MEAN CORPUSCULAR HGB CONC 32.3 G/dL (31.0-37.0); MEAN CORPUSCULAR VOLUME 83 fL (80-100); MONOCYTES # (AUTO) 0.4 K/uL (0.1-1.0); MONOCYTES % (AUTO) 8.3 % (2.0-9.0); NEUTROPHILS # (AUTO) 2.9 K/uL (1.8-7.7); NEUTROPHILS % (AUTO) 55.5 % (40.0-70.0); PLATELET COUNT (AUTO) 297 K/uL (150-450); RED CELL DISTRIBUTION WIDTH 18.2 % (11.5-14.5); WHITE BLOOD COUNT (AUTO) 5.2 K/uL (4.5-11.0)
[2024-06-25 02:22] LABS: ANION GAP 10 mmol/L (8-16); CALCIUM, TOTAL 9.3 mg/dL (8.8-10.5); CARBON DIOXIDE 28 mmol/L (22-29); CHLORIDE 105 mmol/L (98-107); CREATININE 0.83 mg/dL (0.60-1.30); GLOMERULAR FILTR. RATE CALC > 60 mL/min (>60); GLUCOSE,RANDOM 130 mg/dL (70-110); POTASSIUM 4.3 mmol/L (3.5-5.1); SODIUM SERUM 143 mmol/L (136-145); UREA NITROGEN, BLOOD 10 mg/dL (7-18)
[2024-06-25 02:26] LABS: ALCOHOL, BLOOD (SERUM) < 3 mg/dL (0-10)
[2024-06-25] MEDS: LORazepam 1 MG TABLET PO ONE (03:24)
[2024-06-25] MEDS ORDERED: BUSP15 PO (03:53)
[2024-06-25] MEDS ORDERED: MIRT-149 PO (03:53)
[2024-06-25] MEDS ORDERED: QUET300T2 PO (03:53)
[2024-06-25] MEDS ORDERED: QUET200T PO (03:53)
[2024-06-25 04:37] LABS: COVID AG,FIA SOURCE NASAL SWAB
[2024-06-25 05:01] LABS: SARS-COV2 (COVID) ANTIGEN,FIA Negative (Negative)
[2024-06-25] MEDS ORDERED: ACETAMINOPHEN 325 MG TABLET PO PRN ×2 (08:30→11:45)
[2024-06-25] MEDS ORDERED: MAG HYDROX/ALUMINUM HYD/SIMETH ES 30 ML SUSPENSION UDCUP PO PRN ×2 (08:30→11:45)
[2024-06-25] MEDS ORDERED: TUBERCULIN, PURIFIED PROTEIN DERIVATIVE 5 TU/0.1 ML SYRINGE ID ONE (08:30)
[2024-06-25] MEDS ORDERED: GuaiFENesin/D-METHORPHAN [SUGAR-FREE] 200-20MG/10 ML SYRUP UDCUP PO PRN (08:30)
[2024-06-25] MEDS ORDERED: HALOPERIDOL 5 MG TABLET PO PRN (08:30)
[2024-06-25] MEDS ORDERED: HydrOXYzine PAMOATE 50 MG CAPSULE PO PRN (08:30)
[2024-06-25] MEDS ORDERED: MAGNESIUM HYDROXIDE SUSPENSION 30 ML UDCUP PO PRN ×2 (08:30→12:00)
[2024-06-25] MEDS ORDERED: OLANZapine 5 MG RAPDIS TABLET PO PRN (08:30)
[2024-06-25] MEDS ORDERED: PROMETHAZINE HCL 25 MG TABLET PO PRN (08:30)
[2024-06-25] MEDS: NALTREXONE HCL 50 MG TABLET PO SCH (09:09)
[2024-06-25] MEDS: BusPIRone HCL 15 MG TABLET PO SCH (09:09)
[2024-06-25] MEDS: OMEGA-3/DHA/EPA/FISH OIL 1,000 MG CAPSULE PO SCH (09:10)
[2024-06-25] MEDS: FOLIC ACID 1 MG TABLET PO SCH (09:10)
[2024-06-25] MEDS: THIAMINE 100 MG TABLET PO SCH (09:10)
[2024-06-25] MEDS: MULTIVITAMINS WITH MINERALS, THERAPEUTIC TABLET PO SCH (09:12)
[2024-06-25] MEDS: OLANZapine 5 MG RAPDIS TABLET PO PRN (11:01)
[2024-06-25] MEDS: LORazepam 1 MG TABLET PO PRN (11:02)
[2024-06-25] MEDS ORDERED: IBUPROFEN 400 MG TABLET PO PRN (11:45)
[2024-06-25] MEDS: QUEtiapine FUMARATE 100 MG TABLET PO ONE (17:13)
[2024-06-25] MEDS: DENTURE ADHESIVE 68 GM CREAM DT PRN (18:00)
[2024-06-25] MEDS: MELATONIN 5 MG TABLET PO SCH (20:08)
[2024-06-25] MEDS: QUEtiapine FUMARATE 100 MG TABLET PO PRN (20:08)
[2024-06-25] MEDS: MIRTAZAPINE 30 MG TABLET PO SCH (20:08)
[2024-06-25] MEDS: LORazepam 2 MG TABLET PO PRN (20:13)
[2024-06-25] MEDS: QUEtiapine FUMARATE 300 MG TABLET PO SCH (20:16)
[2024-06-25] MEDS ORDERED: OLANZapine 5 MG RAPDIS TABLET PO SCH (21:00)
[2024-06-25 21:33] VITALS: BP 119/73; PULSE 79; RESP 17; TEMP 97.4; O2SAT 96
[2024-06-26 08:07] VITALS: BP 123/79; PULSE 87; RESP 18; TEMP 97.3; O2SAT 96
[2024-06-26] MEDS: LOPERAMIDE HCL 2 MG CAPSULE PO PRN (08:21)
[2024-06-26] MEDS: QUEtiapine FUMARATE 200 MG TABLET PO SCH (09:30)
[2024-06-26 10:01] LABS: HEMOGLOBIN A1C 5.9 % (3.8-5.6)
[2024-06-26 10:50] LABS: CHOL/HDL RATIO 3.5 (3.9-5.7); FREE T4 (FREE THYROXINE) 0.48 ng/dL (0.76-1.46); THYROID STIMULATING HORMONE 2.79 uIU/mL (0.36-3.74)
[2024-06-26 14:26] VITALS: BP 115/71
[2024-06-26] MEDS ORDERED: OMEG100033 PO (16:44)
[2024-06-26] MEDS ORDERED: BUSP15 PO (16:44)
[2024-06-26] MEDS ORDERED: QUET300T19 PO (16:44)
[2024-06-26] MEDS ORDERED: MIRT-149 PO (16:44)
[2024-06-26] MEDS ORDERED: MELA5TAB40 PO (16:44)
[2024-06-26] MEDS ORDERED: QUET200T30 PO (16:44)
[2024-06-26] MEDS ORDERED: GABA-1181 PO (16:44)
[2024-06-26] MEDS ORDERED: NALT50TA33 PO (16:44)
[2024-06-26] MEDS: GABAPENTIN 300 MG CAPSULE PO SCH (17:38)
[2024-06-26 19:49] VITALS: BP 120/80
[2024-06-26] MEDS: LORazepam 2 MG TABLET PO PRN (19:49)
[2024-06-26 20:25] VITALS: BP 117/67; PULSE 86; RESP 18; TEMP 97.3; O2SAT 98
[2024-06-27] MEDS ORDERED: MELA5TAB21 PO (07:20)
[2024-06-27] MEDS ORDERED: [UNRECOGNIZED DRUG - CODE] PO (07:21)
[2024-06-27] MEDS ORDERED: NALT50TA33 PO (07:22)
[2024-06-27 08:05] VITALS: BP 126/72; PULSE 80; RESP 17; TEMP 97.5; O2SAT 96
[2024-06-27] MEDS ORDERED: MUPIROCIN CALCIUM 2% 22 GM OINTMENT NASAL SCH (17:00)
== END 2024-06-27 15:21 | disposition home or self-care (01) | DRG 750 ==
LOC: EMS 00:22 → B2S 08:34
PROVIDERS: ADMIT Psychiatry & Neurology Psychiatry; ATTEND Psychiatry & Neurology Psychiatry
PROC: GZHZZZZ Group Psychotherapy (ICD-10-PCS; principal; 2024-06-25)
PROC: GZ58ZZZ Individual Psychotherapy, Cognitive-Behavioral (ICD-10-PCS; 2024-06-25)
PROC: GZ56ZZZ Individual Psychotherapy, Supportive (ICD-10-PCS; 2024-06-25)
DX: F25.1 Schizoaffective disorder, depressive type (principal); R45.851 Suicidal ideations; Z91.148 Patient's other noncompliance with medication regimen for other reason; F41.9 Anxiety disorder, unspecified; J44.9 Chronic obstructive pulmonary disease, unspecified; M79.7 Fibromyalgia; E78.00 Pure hypercholesterolemia, unspecified; Z20.822 Contact with and (suspected) exposure to COVID-19; F17.200 Nicotine dependence, unspecified, uncomplicated; E03.9 Hypothyroidism, unspecified; K21.9 Gastro-esophageal reflux disease without esophagitis; G43.909 Migraine, unspecified, not intractable, without status migrainosus; R73.9 Hyperglycemia, unspecified; E78.5 Hyperlipidemia, unspecified; F15.10 Other stimulant abuse, uncomplicated; D64.9 Anemia, unspecified; Z55.9 Problems related to education and literacy, unspecified; Z59.9 Problem related to housing and economic circumstances, unspecified; Z63.9 Problem related to primary support group, unspecified; Z65.3 Problems related to other legal circumstances; Z90.710 Acquired absence of both cervix and uterus; Z91.199 Patient's noncompliance with other medical treatment and regimen due to unspecified reason
CPT/HCPCS: 80048; 80061; 80307; 83036; 84439; 84443; 84703; 85025; 86592; 87081; 99285; G0480